=== PATIENT | female | born 1995 | race Hispanic/Latino ===

== ENCOUNTER 2020-08-21 17:52 | Inpatient (IN) | payer SELFPAY ==
[2020-08-21] MEDS ORDERED: FENTANYL CITR 100 MCG/2 ML ONE (18:18)
[2020-08-21] MEDS ORDERED: ONDANSETRON 4 MG/2 ML VIAL ONE (18:18)
[2020-08-21] MEDS ORDERED: NA CHLORIDE 0.9% 1,000 ML ONE (18:27)
[2020-08-21 18:38] LABS: Absolute Lymphocytes (CBC) 1.8 K/uL (0.7-4.9); Basophils % 0.6 % (0-1.3); Hematocrit 29.9 % (36.0-45.0); Lymphocytes % 32.2 % (15.3-44.8); MPV 8.1 fL (7.6-11.3); RBC Red Blood Cell Count 3.25 M/uL (3.86-4.86)
[2020-08-21 18:42] LABS: Protime INR 1.16
[2020-08-21 18:49] LABS: ALT/SGPT 65 U/L (12-78); AST/SGOT 39 U/L (15-37); Albumin 3.5 g/dL (3.4-5.0); Alkaline Phosphatase 115 U/L (45-117); BUN Blood Urea Nitrogen 7 mg/dL (7-18); Bicarbonate 29 mmol/L (21-32); Bilirubin Direct 0.2 mg/dL (0-0.2); Bilirubin Total 0.8 mg/dL (0.2-1.0); Glucose Level 96 mg/dL (74-106); Lipase 61 U/L (73-393); Magnesium 2.2 mg/dL (1.8-2.4); NT PRO-BNP 34 pg/mL (<125); Potassium 3.1 mmol/L (3.5-5.1); Protein, Total 7.4 g/dL (6.4-8.2); Sodium Level 144 mmol/L (136-145); Troponin (Emerg Dept Use Only) < 0.02 ng/mL (0.0-0.045)
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
[2020-08-21] MEDS ORDERED: FAMOTIDINE 20 MG/2 ML VIAL IV ONE (18:56)
[2020-08-21 18:58] LABS: Urine Blood 1+ (Negative); Urine Glucose Negative (Negative); Urine Protein 1+ (Negative); Urine Specific Gravity 1.025 (1.005-1.030); Urine pH 6.5 (5.0-7.0)
[2020-08-21 19:30] LABS: Barbiturates NEGATIVE (NEGATIVE); Benzodiazepines NEGATIVE (NEGATIVE); Cocaine NEGATIVE (NEGATIVE); METHAMPHETAM POSITIVE (NEGATIVE); Methadone NEGATIVE (NEGATIVE); Opiates NEGATIVE (NEGATIVE); Phencyclidine NEGATIVE (NEGATIVE); THC Cannibis NEGATIVE (NEGATIVE)
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
[2020-08-21] MEDS ORDERED: D5.45NS W/KCL 20MEQ 1,000 ML IV ONE (20:39)
[2020-08-21] MEDS ORDERED: CEFTRIAXONE/SWI 1gm 1 GM/10 ML SYR ONE (20:39)
[2020-08-21] MEDS ORDERED: POTASSIUM 25 MEQ EFFERV TAB ONE (20:39)
[2020-08-21] MEDS: D5.45NS W/KCL 20MEQ 1,000 ML IV SCH (22:11)
[2020-08-21] MEDS ORDERED: ONDANSETRON 4 MG/2 ML VIAL IV PRN (22:11)
[2020-08-21] MEDS: FAMOTIDINE 20 MG/2 ML VIAL IV SCH (22:11)
[2020-08-21] MEDS ORDERED: ACETAMINOPHEN 500 MG TAB PO PRN (22:11)
[2020-08-21] MEDS ORDERED: ACETAMINOPHEN 325 MG TABLET PO PRN (23:00)
[2020-08-21 23:01] VITALS: BMI 22.4
[2020-08-22] MEDS: D5.45NS W/KCL 20MEQ 1,000 ML IV SCH ×3 (04:55→20:48)
[2020-08-22] MEDS: MORPHINE 2 MG/ML SYR IV PRN (05:32)
[2020-08-22 06:08] LABS: BUN Blood Urea Nitrogen 5 mg/dL (7-18); Bicarbonate 27 mmol/L (21-32); Glucose Level 116 mg/dL (74-106); Potassium 3.5 mmol/L (3.5-5.1); Sodium Level 146 mmol/L (136-145)
[2020-08-22 06:09] LABS: Absolute Lymphocytes (CBC) 2.6 K/uL (0.7-4.9); Basophils % 0.5 % (0-1.3); Hematocrit 28.8 % (36.0-45.0); Lymphocytes % 39.3 % (15.3-44.8); MPV 8.2 fL (7.6-11.3); RBC Red Blood Cell Count 3.05 M/uL (3.86-4.86)
[2020-08-22] MEDS ORDERED: CEFTRIAXONE 1 GM/NS 50 ML 1 GM/50 ML BAG IV SCH (09:00)
[2020-08-22] MEDS: FAMOTIDINE 20 MG/2 ML VIAL IV SCH ×2 (09:00→20:42)
--- NOTE | 2020-08-22 09:35 | RAD REPORT ---
EXAM DESCRIPTION: [place] Single View08/22/2020 6:57 am CLINICAL HISTORY: Chest pain COMPARISON: August 21, 2020 FINDINGS: The lungs appear clear of acute infiltrate. The heart is normal size. Bilateral rib fractures unchanged. No significant pleural effusion. A pneumothorax is not visualized
[2020-08-22 10:17] LABS: Specific Gravity 1.025 (1.005-1.030)
[2020-08-22] MEDS: CEFTRIAXONE/SWI 1gm 1 GM/10 ML SYR IV SCH (14:49)
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
[2020-08-23] MEDS: MORPHINE 2 MG/ML SYR IV PRN ×3 (00:04→09:27)
[2020-08-23] MEDS: D5.45NS W/KCL 20MEQ 1,000 ML IV SCH (04:15)
[2020-08-23] MEDS ORDERED: LIDOCAINE 4% PATCH TOP SCH (09:00)
[2020-08-23] MEDS: FAMOTIDINE 20 MG/2 ML VIAL IV SCH (09:29)
[2020-08-23 09:40] VITALS: O2SAT 100
[2020-08-23 10:13] VITALS: BP 120/60; TEMP 98.1
[2020-08-23] MEDS: CEFTRIAXONE/SWI 1gm 1 GM/10 ML SYR IV SCH (14:48)
--- NOTE | 2020-08-23 14:51 | P.PN ---
Date of Service: 08/23/20 S: No specific complaints. Is still sensor chest is sore, able to get up and walk around. Pain medicine appears to be adequate. O: vital signs remain stable. Mild improvement to her is subconjunctival hematoma. Abdominal binder in place. A: Surgically stable P: Will discharge is patient today. She will be given a prescription for pain medicine. She has been instructed on how to use her incentive spirometry. Should she have any sudden onset of shortness of breath or change in her pain quality, she is advised to go to the emergency room or contact me. She understands and wants to proceed.
== END 2020-08-23 16:16 | disposition home or self-care (01) | DRG 184 ==
LOC: ER 17:52 → ERHOLD 19:45 → EEVIPCON 19:45 → 2ND 21:44 → OBSVTOIN 08-22 10:13
PROVIDERS: ADMIT Surgery; ATTEND Surgery
DX: S22.43XA Multiple fractures of ribs, bilateral, initial encounter for closed fracture (principal); T74.11XA Adult physical abuse, confirmed, initial encounter; N39.0 Urinary tract infection, site not specified; S00.03XA Contusion of scalp, initial encounter; S40.019A Contusion of unspecified shoulder, initial encounter; S40.029A Contusion of unspecified upper arm, initial encounter; Y04.2XXA Assault by strike against or bumped into by another person, initial encounter; Y92.009 Unspecified place in unspecified non-institutional (private) residence as the place of occurrence of the external cause; Z20.822 Contact with and (suspected) exposure to COVID-19
CPT/HCPCS: 36415; 51702; 70450; 71045; 71260; 72125; 72170; 74177; 80048; 80076; 80307; 80320; 80329; 81003; 81025; 82140; 82565; 83690; 83735; 83880; 84484; 85025; 85610; 85730; 87077; 87086; 87088; 87186; 93005; 94010; 96374; 96375; 99285; G0378; G0390; J0696; J2270; J2405; J3010; J7030; Q9967; U0003